=== PATIENT | female | born 1940 | race Two or more races ===

== ENCOUNTER 2022-02-15 14:02 | Inpatient (IN) | payer MEDICARE ==
[~2022-02-15] VITALS: Ht 165.1 cm; Wt 70.8 kg
--- NOTE | 2022-02-15 14:30 | NUR ---
BIBDAUGHTER C/O DIZZINESS SINCE YESTERDAY AFTER HAVING A LARGE BM YESTERDAY AFTER TAKING LAXATIVE FOR CONSTIPATION. AMBULATORY, PLACED ON BED, BREATHING EVEN AND UNLABORED SATURATING AT 97%RA
--- NOTE | 2022-02-15 15:01 | NUR ---
RAPID COVID SWAB DONE AND SENT TO LAB
--- NOTE | 2022-02-15 15:30 | NUR ---
metallurgy laboratory technician at bedside
--- NOTE | 2022-02-15 15:43 | NUR ---
MOVE SHEET SUBMITTED.
--- NOTE | 2022-02-15 15:54 | NUR ---
URINE SAMPLE SENT TO LAB
[2022-02-15] MEDS ORDERED: TOFA5TAB PO (15:58)
[2022-02-15] MEDS ORDERED: CHOL200059 PO (15:58)
[2022-02-15] MEDS ORDERED: ASCO100031 PO (15:58)
[2022-02-15] MEDS ORDERED: AMLO2.5T4 PO (15:58)
[2022-02-15] MEDS ORDERED: LOSA100T31 PO (15:58)
[2022-02-15] MEDS ORDERED: SIMV10TA98 PO (15:58)
[2022-02-15] MEDS ORDERED: FLAX10003 PO (15:58)
[2022-02-15 16:02] LABS: BASOPHILS % (AUTO) 0.7 % (0.0-2.0); EOSINOPHILS % (AUTO) 0.6 % (0.0-6.0); HEMATOCRIT 34 % (33-45); HEMOGLOBIN 10.7 g/dL (11.5-14.8); LYMPHOCYTES # (AUTO) 1.1 K/uL (0.8-4.8); LYMPHOCYTES % (AUTO) 19.5 % (20.0-44.0); MEAN CORPUSCULAR HGB CONC 32 g/dl (31.0-36.0); MEAN CORPUSCULAR VOLUME 99 fL (82-100); MONOCYTES # (AUTO) 1.1 K/uL (0.1-1.30); MONOCYTES % (AUTO) 19.6 % (2.0-12.0); NEUTROPHILS # (AUTO) 3.4 K/uL (1.8-8.9); NEUTROPHILS % (AUTO) 59.6 % (43.0-81.0); PLATELET COUNT (AUTO) 227 K/uL (150-450); RED BLOOD CELL COUNT(AUTO) 3.39 MIL/uL (4.0-5.2); WHITE BLOOD COUNT (AUTO) 5.7 K/uL (4.3-11.0)
[2022-02-15 16:36] LABS: BILIRUBIN,URINE NEGATIVE (NEGATIVE); COLOR,URINE YELLOW (YELLOW); LEUKOCYTE ESTERASE ,URINE NEGATIVE (NEGATIVE); NITRITE, URINE NEGATIVE (NEGATIVE); PROTEIN,URINE 1+ mg/dl (NEGATIVE); UGLUCOSE NEGATIVE (NEGATIVE); UROBILINOGEN,URINE 0.2 EU/dL (0.2)
[2022-02-15] MEDS ORDERED: IV NS 0.9% 1,000 ML IV PRN (17:00)
[2022-02-15] MEDS ORDERED: Z GUARD REMEDY 4 OZ OINT TP PRN (17:00)
[2022-02-15] MEDS ORDERED: XELJANZ 5 MG PO SCH (17:00)
[2022-02-15] MEDS ORDERED: HYDROCODONE/APAP 5/325MG TABLET PO PRN (17:00)
[2022-02-15] MEDS ORDERED: MORPHINE SULFATE INJ 2 MG/ML DISP.SYRIN IV PRN (17:00)
[2022-02-15] MEDS ORDERED: MAG HYDROX/AL HYDROX/SIMETH 30 ML UDC PO PRN (17:00)
[2022-02-15] MEDS ORDERED: ACETAMINOPHEN 325 MG TABLET PO PRN (17:00)
[2022-02-15] MEDS ORDERED: ONDANSETRON HCL/PF 4 MG/2 ML VIAL IVP PRN (17:00)
[2022-02-15] MEDS ORDERED: MAGNESIUM HYDROXIDE 30 ML UDC PO PRN (17:00)
[2022-02-15 17:11] LABS: EOSINOPHILS % (MANUAL) 1 % (0-4); LYMPHOCYTES % (MANUAL) 24 % (16-48); MONOCYTES % (MANUAL) 15 % (0-11.0); NEUTROPHILS % (MANUAL) 60 (42-76)
[2022-02-15 17:43] LABS: ALANINE AMINOTRANSFERASE 39 U/L (12-78); ALBUMIN 3.6 g/dL (3.4-5.0); ALKALINE PHOSPHATASE 87 U/L (46-116); ASPARTATE AMINOTRANSFERASE 32 U/L (15-37); BILIRUBIN,DIRECT 0.1 mg/dL (0.0-0.2); BILIRUBIN,TOTAL 0.2 mg/dL (0.2-1.0); CALCIUM, SERUM 10.1 mg/dL (8.5-10.1); CARBON DIOXIDE 24 mmol/L (21-32); CHLORIDE 100 mmol/L (98-107); CREATININE 1.1 mg/dL (0.6-1.3); GLUCOSE 100 mg/dL (74-106); POTASSIUM 4.6 mmol/L (3.5-5.1); SODIUM SERUM 134 mmol/L (136-145); TOTAL PROTEIN, SERUM 7.7 g/dL (6.4-8.2); UREA NITROGEN, BLOOD 24 mg/dL (7-18)
[2022-02-15 17:48] LABS: BACTERIA,URINE None seen /HPF (None Seen); RBC,URINE 0-2 /HPF (0-2); SQUAMOUS EPITHELIAL CELL,UR Rare /HPF (None Seen); WBC,URINE NONE SEEN /HPF (0-3)
--- NOTE | 2022-02-15 19:23 | NUR ---
called lab to follow up on pending covid result
--- NOTE | 2022-02-15 19:49 | NUR ---
followed up with lab again regarding covid result.
--- NOTE | 2022-02-15 20:06 | NUR ---
pt going to [phone] tele
--- NOTE | 2022-02-15 20:13 | NUR ---
got bed 107
--- NOTE | 2022-02-15 20:23 | NUR ---
RN NOTES RECEIVED ER ADMISSION REPORT FROM MICHAEL ABBOTT. ALL PERTINENT ADMISSION INFO REGARDING PT NOTED. WILL WAIT FOR PT TO BE TRANSFERRED TO UNIT AND ADDRESS NEEDS ACCORDINGLY. TITLE CURATOR MADE AWARE.
--- NOTE | 2022-02-15 20:25 | NUR ---
REPORT GIVEN TO DAISY RODRIGUEZ ROOM 107 FOR MIGUEL
--- NOTE | 2022-02-15 20:55 | NUR ---
RN NOTES RECEIVED PT FROM ER VIA GURNEY ACCOMPANIED BY 2 ER STAFF AND TRANSFERRED TO BED INDEPENDENTLY. PT IS A/OX ON ROOM AIR WITH RESPIRATIONS EVEN AND UNLABORED. COMPREHENSIVE PHYSICAL ASSESSMENT AND PATIENT CARE DONE. CALL LIGHT WITHIN REACH, SAFETY MEASURES AND ISOLATION PRECAUTION IN PLACE, WILL CONTINUE MONITOR AND ASSESS THROUGHOUT THE SHIFT. WILL CARRY OUT MD ORDERS ACCORDINGLY. OXYGEN THERAPIST MADE AWARE.
[2022-02-15 21:00] VITALS: BP 156/72
[2022-02-15] MEDS: ENOXAPARIN SODIUM 30 MG/0.3 ML DISP.SYRIN SQ SCH (21:52)
[2022-02-15] MEDS ORDERED: ZOLPIDEM TARTRATE 5 MG TABLET PO PRN (22:00)
[2022-02-16] VITALS: BP 156/69
[2022-02-16 04:00] VITALS: BP 155/75
--- NOTE | 2022-02-16 04:00 | NUR ---
RN NOTES PATIENT REMAINED TO BE IN NO SIGNS OF ACUTE RESPIRATORY DISTRESS , SAFE ENVIRONMENT MAINTAINED FOR PT. AM PATIENT CARE ASSISTANCE RENDERED. WILL CONTINUE TO MONITOR AND REASSESS FOR ANY CHANGES THROUGHOUT THE SHIFT.
--- NOTE | 2022-02-16 06:35 | NUR ---
RN CLOSING NOTE: PATIENT REMAINS IN ROOM IN NO SIGNS OF RESPIRATORY DISTRESS, PATIENT STILL ON ROOM AIR; TOLERATING WELL SATURATING @ >95% SP02. SAFETY MEASURES IMPLEMENTED, BED IN LOWEST POSITION, LOCKED, SIDE RAILS UP, CALL LIGHT WITHIN REACH. ALL NEEDS AND ORDERS ADDRESSED DURING THE SHIFT. IV ACCESS MAINTAINED INTACT, SECURED AND FLUSHING WELL. ALL DUE MEDS GIVEN ORDERED & SCHEDULED ; PATIENT TOLERATED WELL. PATIENT KEPT CLEAN AND COMFORTABLE WITHIN THE SHIFT. PATIENT ENDORSED TO INCOMING SHIFT RN WITH STABLE VITAL SIGN AND FOR CONTINUITY OF CARE.
[2022-02-16 07:05] LABS: BASOPHILS % (AUTO) 0.3 % (0.0-2.0); EOSINOPHILS % (AUTO) 0.7 % (0.0-6.0); HEMATOCRIT 29 % (33-45); HEMOGLOBIN 9.7 g/dL (11.5-14.8); LYMPHOCYTES # (AUTO) 0.8 K/uL (0.8-4.8); LYMPHOCYTES % (AUTO) 14.8 % (20.0-44.0); MEAN CORPUSCULAR HGB CONC 34 g/dl (31.0-36.0); MEAN CORPUSCULAR VOLUME 94 fL (82-100); MONOCYTES # (AUTO) 0.9 K/uL (0.1-1.30); MONOCYTES % (AUTO) 16.5 % (2.0-12.0); NEUTROPHILS # (AUTO) 3.6 K/uL (1.8-8.9); NEUTROPHILS % (AUTO) 67.7 % (43.0-81.0); PLATELET COUNT (AUTO) 262 K/uL (150-450); RED BLOOD CELL COUNT(AUTO) 3.05 MIL/uL (4.0-5.2); WHITE BLOOD COUNT (AUTO) 5.3 K/uL (4.3-11.0)
--- NOTE | 2022-02-16 07:20 | NUR ---
ELECTRICAL PROSPECTING OPERATOR OPENING NOTES: RECEIVED PATIENT IN BED ASLEEP BUT EASILY AROUSES TO VOICE AND TOUCH. PATIENT IS ALERT, ORIENTED X 4. NO SOB NOTED, BREATHING EVEN AND UNLABORED. ON RA WITH OXYGEN SATURATION OF 95%. ON SR ON TELE MONITOR WITH HR OF 72. HAS IV ACCESS ON RIGHT FOREARM, INTACT, PATENT AND FLUSHES WELL, NO S/S INFILTRATION ON THE IV SITE. CALL LIGHT WITHIN REACH. ALL SAFETY MEASURES IN PLACE. BED LOCKED AND IN LOWEST POSITION. WILL CONTINUE TO MONITOR PATIENT THROUGHOUT SHIFT.
[2022-02-16 07:23] LABS: CALCIUM, SERUM 9.1 mg/dL (8.5-10.1); MAGNESIUM 1.8 mg/dL (1.8-2.4); PHOSPHORUS 3.5 mg/dL (2.5-4.9); POTASSIUM 4.1 mmol/L (3.5-5.1)
[2022-02-16 07:30] LABS: THYROID STIMULATING HORMONE 3.403 uIU/mL (0.358-3.74)
[2022-02-16] MEDS: PANTOPRAZOLE 40 MG TABLET.DR PO SCH (07:48)
[2022-02-16 08:00] VITALS: BP 140/66
[2022-02-16] MEDS: ASCORBIC ACID 500 MG TABLET PO SCH (09:01)
[2022-02-16] MEDS: CHOLECALCIFEROL (VITAMIN D 3) 400 UNIT TABLET PO SCH (09:02)
[2022-02-16] MEDS: AMLODIPINE BESYLATE 2.5 MG TABLET PO SCH (09:02)
[2022-02-16] MEDS: LOSARTAN POTASSIUM 50 MG TABLET PO SCH (09:02)
[2022-02-16 10:45] LABS: BAND % (MANUAL) 8 % (0.0-5.0); BASOPHILS % (MANUAL) 0 % (0.0-2.0); EOSINOPHILS % (MANUAL) 0 % (0-4); LYMPHOCYTES % (MANUAL) 16 % (16-48); MONOCYTES % (MANUAL) 15 % (0-11.0); NEUTROPHILS % (MANUAL) 61 (42-76)
[2022-02-16 11:35] LABS: IRON, SERUM 51 ug/dl (50-175); TOTAL IRON BINDING CAPACITY 219 ug/dl (250-450)
[2022-02-16 11:51] LABS: FERRITIN 686 ng/mL (8-388)
[2022-02-16 12:00] VITALS: BP 123/63
[2022-02-16 16:00] VITALS: BP 137/69
--- NOTE | 2022-02-16 17:51 | NUR ---
ORTHOSTATIC BP DONE FOR THE PATIENT FOLLOWS: LYING - 146/69 PULSE 73 SITTING - 152/76 PULSE 75 STANDING - 135/69 PULSE 96
[2022-02-16] MEDS ORDERED: SIMVASTATIN 10 MG TABLET PO SCH (18:00)
--- NOTE | 2022-02-16 18:34 | NUR ---
NON DESTRUCTIVE TESTER CLOSING NOTES: PATIENT IN BED, AWAKE, ALERT, ORIENTED X 4. NO RESPIRATORY DISTRESS NOTED THROUGHOUT SHIFT. PATIENT REMAINS STABLE AND IN NO ACUTE DISTRESS. NO C/O PAIN OR DISCOMFORT AT THIS TIME. NO EPISODES OF LIGHTHEADEDNESS NOTED DURING SHIFT. ON SR ON TELE MONITOR WITH HR OF 86, IV SITE IN RIGHT FOREARM INTACT, FLUSHES WELL, NO S/S INFILTRATION NOTED. ALL NEEDS MET AND ANTICIPATED. WILL ENDORSE TO INCOMING SHIFT FOR CONTINUITY OF CARE.
--- NOTE | 2022-02-16 19:15 | NUR ---
RN NOTES RECEIVED PT FOR CONTINUITY OF CARE. PATIENT A/OX4 IN NO S/SX OF ACUTE DISTRESS AT THIS TIME; CURRENTLY ON ROOM AIR; WITH 02 SAT 99% AT THIS TIME.WITH IV ACCESS ON R FA#20 PATENT, INTACT AND FLUSHING WELL. WILL ENSURE SAFETY MEASURES WITHIN THE SHIFT. PATIENT BED ALARM IS ON. HEAD OF BED ELEVATED. BED IS LOCKED, IN LOWEST POSITION AND SIDE RAILS UP. CALL LIGHT WITHIN REACH OF THE PATIENT ISO PRECAUTION FOR COVID MAINTAINED. WILL CONTINUE TO MONITOR AND REASSESS FOR ANY CHANGES AND WILL CARRY OUT ANY ONGOING AND ACTIVE MD ORDER.
[2022-02-16 20:00] VITALS: BP 124/76
[2022-02-16] MEDS: ENOXAPARIN SODIUM 30 MG/0.3 ML DISP.SYRIN SQ SCH (21:08)
[2022-02-17] VITALS: BP 128/80
[2022-02-17 04:00] VITALS: BP 154/72
--- NOTE | 2022-02-17 07:15 | NUR ---
RN notes Received patient in bed. Patient is resting without active complaint. IV site is dry, intact and patent. . Call jean is placed within reach. Bed is locked and placed in the lowest position. All safety measures have been implemented. Will continue monitoring and care. Addendum: 02/17/22 at 0729 by ELISA DAWSON RN Telemetry showed SR with HR 72/min.
[2022-02-17 07:22] LABS: BASOPHILS % (AUTO) 0.7 % (0.0-2.0); HEMATOCRIT 30 % (33-45); HEMOGLOBIN 9.9 g/dL (11.5-14.8); LYMPHOCYTES # (AUTO) 0.5 K/uL (0.8-4.8); LYMPHOCYTES % (AUTO) 9.6 % (20.0-44.0); MEAN CORPUSCULAR HGB CONC 33 g/dl (31.0-36.0); MEAN CORPUSCULAR VOLUME 95 fL (82-100); MONOCYTES % (AUTO) 19.2 % (2.0-12.0); NEUTROPHILS # (AUTO) 3.5 K/uL (1.8-8.9); NEUTROPHILS % (AUTO) 69.5 % (43.0-81.0); PLATELET COUNT (AUTO) 279 K/uL (150-450); RED BLOOD CELL COUNT(AUTO) 3.11 MIL/uL (4.0-5.2)
[2022-02-17 07:39] LABS: ALBUMIN 2.9 g/dL (3.4-5.0); BILIRUBIN,TOTAL 0.3 mg/dL (0.2-1.0); CALCIUM, SERUM 9.3 mg/dL (8.5-10.1); CREATININE 1.1 mg/dL (0.6-1.3); MAGNESIUM 1.8 mg/dL (1.8-2.4); PHOSPHORUS 3.6 mg/dL (2.5-4.9); POTASSIUM 4.4 mmol/L (3.5-5.1); TOTAL PROTEIN, SERUM 6.4 g/dL (6.4-8.2)
[2022-02-17 08:00] VITALS: BP 136/73
[2022-02-17] MEDS: AMLODIPINE BESYLATE 2.5 MG TABLET PO SCH (08:14)
[2022-02-17] MEDS: LOSARTAN POTASSIUM 50 MG TABLET PO SCH (08:14)
[2022-02-17] MEDS: ASCORBIC ACID 500 MG TABLET PO SCH (08:14)
[2022-02-17] MEDS: CHOLECALCIFEROL (VITAMIN D 3) 400 UNIT TABLET PO SCH (08:14)
[2022-02-17] MEDS: PANTOPRAZOLE 40 MG TABLET.DR PO SCH (08:15)
[2022-02-17 11:05] LABS: BAND % (MANUAL) 7 % (0.0-5.0); BASOPHILS % (MANUAL) 0 % (0.0-2.0); EOSINOPHILS % (MANUAL) 1 % (0-4); LYMPHOCYTES % (MANUAL) 13 % (16-48); MONOCYTES % (MANUAL) 20 % (0-11.0); NEUTROPHILS % (MANUAL) 59 (42-76)
[2022-02-17 13:52] VITALS: BP 139/69
--- NOTE | 2022-02-17 14:00 | NUR ---
RN notes Nasal swab for COVID-19 rapid test was taken. Informed patient and her son about the discharge. Pending arrangement.
--- NOTE | 2022-02-17 15:15 | NUR ---
RN notes Informed by the lab colleague that patient's COVID 19 rapid test is still positive. Notified patient.
[2022-02-17 16:00] VITALS: BP 139/73
--- NOTE | 2022-02-17 17:10 | NUR ---
internist notes Patient's transportation to the hotel has been arranged. Accompanied patient to the lobby with wheelchair, and assisted her to get on the Uber to the hotel. Her son is informed of the discharge. Patient has checked that she has taken all of her belongings. IV site is removed without bleeding. Telebox is removed.
== END 2022-02-17 17:30 | disposition home or self-care (01) | DRG 149 ==
LOC: ER 14:13 → TELE1 20:16
PROVIDERS: ADMIT Nurse Practitioner Acute Care; ATTEND Nurse Practitioner Acute Care
DX: H81.10 Benign paroxysmal vertigo, unspecified ear (principal); U07.1 COVID-19; J84.9 Interstitial pulmonary disease, unspecified; N17.9 Acute kidney failure, unspecified; I10 Essential (primary) hypertension; E78.5 Hyperlipidemia, unspecified; M06.9 Rheumatoid arthritis, unspecified; Z90.49 Acquired absence of other specified parts of digestive tract; I87.8 Other specified disorders of veins
CPT/HCPCS: 36415; 70450-TC; 71045-TC; 80048-TC; 80053-TC; 80061-TC; 80076-TC; 81001; 82728-TC; 82962-TC; 83540-TC; 83735-TC; 83880; 84100-TC; 84443-TC; 84484-TC; 85025-TC; 85378-TC; 86140-TC; 93307-TC; 93970-TC; 97116-TC; 97530-TC; C9803; G0378; J1650